=== PATIENT | male | born 1995 | race Caucasian/White ===

== ENCOUNTER 2018-11-15 04:22 | Emergency (ER) | payer OTHER, SELFPAY ==
[2018-11-15 04:27] VITALS: BP 121/80; PULSE 87; RESP 18; TEMP 37; O2SAT 98
--- NOTE | 2018-11-15 04:31 | ED.GENADUL_ITS ---
Discharge Plan Disposition Patient Disposition: HOME Condition: Good Discharge Details Chief Complaint: EyeProblem Clinical Impression: Foreign body of right eye Primary Care Provider: Brando Mcelroy ED Provider: Reggie Celestin Discharge Instructions Additional Instructions: Please avoid contact lenses for the next 24 hours and stick with just regular glasses. Please follow-up closely with your metallurgical lab technician. If you notice any worsening of your eye pain, change in vision, discharge, please return immediately for reassessment. As always it is a pleasure participating in your care today. Referrals: Brando Mcelroy. 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 He was removing it when he twitched and caused the lens to break. He comes in for removal of this. Exam demonstrates evidence of the half but intact lens, it was easily removed with forceps with out any difficulty or complication. Fluorescein stain demonstrated no uptake or abnormality. Eversion of the upper and lower lids demonstrates no retained foreign body. No clinical evidence of ulcer. No indication for antibiotics. Patient has complete relief of his symptoms with removal of the partial lids. Recommend avoiding lenses for the next 24 hours and sticking with a regular glasses. Recommend close follow-up with his metallurgical lab technician. I have extensively reviewed the treatment plan and discharge instructions with the patient and their family. I have addressed all patient concerns at this time. The patient and family was made aware of what symptoms to monitor for that would warrant a return to the emergency department. Discussed the plan with the patient and family, they demonstrate verbal understanding and agreement with our assessment and plan at this time. HPI General Date/Time Provider Initiated Documentation: 11/15/18 04:31 . 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 The patient was taking his flat flexible lenses out when his eye twitched and broke the rubber lens in a half. Since then he has been unable to remove it. He does admit to feeling of mild irritation but denies any pain or vision changes otherwise. Immunizations are up-to-date. He denies any discharge. This occurred roughly 15 to 20 minutes prior to arrival. Pain is made worse with movement of the side. No other modifying factors. No other complaints at this time Related Data Allergies Allergy/AdvReac Type Severity Reaction Status Date / Time cephalexin monohydrate Allergy Unknown Hives Unverified 11/15/18 04:30 [From Partender] General Stated Complaint: EyeProblem REED: 4 Review of Systems Review of Systems All systems reviewed & are unremarkable except as noted in HPI and below PFSH Medical History Pectus excavatum Surgical History Hydrocelectomy LYMPH NODE EXCISION/BX (~2009) RODRIGO PROCEDURE Removal of Pectus bar and stabilizers TENDON EXCISION Family History Mother No problems noted. Father Alcohol abuse Brother ADHD (attention deficit hyperactivity disorder) Grandfather Diabetes Essential hypertension Heart disease Hyperlipidemia Grandfather No problems noted. Grandmother Essential hypertension Personal history of malignant neoplasm Grandmother No problems noted. FAMILY HISTORY Personal history of malignant neoplasm Stroke Exam Narrative Exam Narrative: 1.Const: Well-nourished, Well-developed, appearing stated age 2.Eyes: Eye: EOMI, PERRL, Peripheral vision intact. No nystagmus. No external signs of preseptal cellulitis, no redness around the eye, no proptosis. No hyphema, no signs of trauma around the eye, no periorbital emphysema. Fluorescein exam is negative for corneal abrasion, negative Marbella sign. There is evidence of the remaining half of the contact lens still in place. This was removed without incident. Fluorescein staining after demonstrated no evidence of uptake or abnormality. No signs of ulcer. 3.ENT: Atraumatic external nose and ears. Moist MM. Neck: Symmetric, trachea midline, No thyromegaly. 4.CVS: +S1/S2, No murmurs or gallops. Peripheral pulses 2+ and equal in all extremities. Brisk capillary refill in all extremities. 5.RESP: Unlabored respiratory effort. Clear to auscultation bilaterally. No wheezes rales or rhonchi 6.GI: Soft, Nontender/Nondistended, No hepatosplenomegaly. No guarding or rebound. 7.MSK: Normocephalic/Atraumatic, Extremities w/o deformity or ttp No cyanosis or clubbing, Normal movement of all extremities 8.Skin: Warm, Dry. No rashes or lesions. 9.Neuro: chemical dependency professional II-XII grossly intact. Sensation grossly intact, no focal neurologic deficits. 10.Psych: (AAO) x3. Appropriate mood and affect Course Vital Signs Temperature 37 C 11/15/18 04:27 Pulse 87 11/15/18 04:27 Respiratory Rate 18 11/15/18 04:27 Blood Pressure 121/80 11/15/18 04:27 Pulse Oximetry 98 11/15/18 04:27 Temperature 37 C 11/15/18 04:27 Temperature Source Temporal Artery Scan 11/15/18 04:27 Pulse 87 11/15/18 04:27 Respiratory Rate 18 11/15/18 04:27 Blood Pressure 121/80 11/15/18 04:27 Blood Pressure Position Sitting 11/15/18 04:27 Pulse Oximetry 98 11/15/18 04:27 Oxygen Delivery Method Room Air 11/15/18 04:27 Oxygen Flow Rate 0 11/15/18 04:27 Pain Level 0 11/15/18 04:27
== END 2018-11-15 04:33 | disposition home or self-care (01) ==
LOC: ER 04:35
PROVIDERS: Emergency Provider Student in an Organized Health Care Education/Training Program; PCP Family Medicine
DX: T15.91XA Foreign body on external eye, part unspecified, right eye, initial encounter (principal)
CPT/HCPCS: 99283

== ENCOUNTER 2023-01-18 08:17 | Day surgery (SDC) | payer OTHER, SELFPAY ==
--- NOTE | 2023-01-17 14:25 | W.PM.DSUDISC ---
Date of service: 01/18/23 Time of Service: 10:57 Discharge Plan Disposition Patient Disposition: Home Condition: Good Discharge Details Reason For Visit: Pilonidal cystectomy Attending Provider: Dequan Rios Primary Care Provider: Oracio Morales Home Meds and New Rx's Prescriptions: New tramadol 50 mg tablet 50 mg PO Q8H PRNQty: 12 0RF Rx Instructions: Take 1 tablet by mouth up to every 8 hours if needed for severe pain. Discharge Instructions Instructions: Pilonidal Cyst Excision (DC) Additional Instructions: Edi, we were able to excise the cyst today without any difficulty. I was able to get out all of the capsule, and I am very optimistic that this will prevent any of it from coming back. Over the coming days, you should use Tylenol and ibuprofen to help with discomfort. Heating pads and ice packs can also be used. I also provided a prescription for some stronger pain medications that you can use if needed. Leave your bandages in place until tomorrow, then remove them. Shower with warm soapy water and pat the area dry. If you need a Band-Aid to protect your clothing that is fine. If you can shower twice a day that will probably be helpful. We have made an appointment with you in the office on January 30 to have the stitches removed. If you have any problems in the meantime, please do not hesitate to call. Referrals: Dequan Rios MD [ [facility]YSICIAN] - (January 30) Activity:: Activity as Tolerated Shower/Bathe:: 24 hours Diet:: As Tolerated Discharge Orders Discharge Orders: Discharge Order (Routine); Ordered 01/17/23 Ordered By: Dequan Rios DS: Diagnosis Discharge Diagnosis (1) Pilonidal cyst: Asessment and Plan: Follow-up in my office January 30
--- NOTE | 2023-01-17 14:26 | W.PM.OP ---
Date of service: 01/18/23 Time of Service: 11:02 Operative Note Operative Note DATE OF PROCEDURE: 01/18/23 PRE-OP DIAGNOSIS: Pilonidal cyst POST-OP DIAGNOSIS: same PROCEDURE: Excision and primary closure of pilonidal cyst SURGEON: Dequan Rios SENIOR MANAGER CREATIVE SERVICES: Neha Chavez ANESTHESIA TYPE: Local By Surgeon, MAC and Spinal Refer to Anesthesia Record ESTIMATED BLOOD LOSS: 5 PATHOLOGY: other (Pilonidal cyst) COMPLICATIONS: None Patient was transported to: PACU Patient's condition: stable Indications: Edi is 27 years old, and he had a pilonidal cyst with intermittent infection and drainage. He is interested in elective pilonidal cystectomy. Procedure Description: After final anesthesia was established, the patient was assisted to the prone position. Great care was taken to pad all the points of contact. Genitalia were assessed. Next, the sacrococcygeal area was prepped and draped. Established a generous field block using local anesthetic with epinephrine. The trajectory of the cyst was carefully examined. At the skin level, it arose approximately 3 cm to the left of midline, and tracked down into the superior aspect of the intergluteal fold. Because of the bridge of healthy skin, I felt the best option for excision was a semielliptical incision around the area of the superficial portion of the cyst. This was situated well off the midline. A 15 blade scalpel was used to carefully dissect the midline skin down to the underside of the cyst. Another small subcentimeter area of opening was identified in the midline. This was sharply excised. The soft tissue around the cyst itself was all excised with a 15 blade scalpel. The cyst was removed in its entirety. It was passed off the field and labeled appropriately. Surgical site was irrigated. Bovie electrocautery was used to control punctate areas of bleeding. The wound bed was carefully examined. Again, it appeared that there was no evidence of any retained cyst material. The midline defect was closed with a single interrupted absorbable suture. The remainder the incision was closed in layers subcuticular stitches deep, and horizontal mattress stitches at the skin level. Bandages were applied, the patient was transferred to the same-day surgery recovery unit.
[2023-01-18] MEDS: Gabapentin 300 MG CAP 600 MG PO (08:29)
[2023-01-18] MEDS: Acetaminophen 500 MG TAB 1000 MG PO (08:30)
[2023-01-18] MEDS: Celecoxib 200 MG CAP PO (08:30)
[2023-01-18 08:33] VITALS: BP 102/67; PULSE 51; RESP 16; TEMP 36.3; O2SAT 99
--- NOTE | 2023-01-18 08:51 | W.ANESPRE ---
General Info Date of Service Date Performed: 01/18/23 Height: 5 ft 11 in Weight: 66.6 kg Body Mass Index (BMI): 20.5 Surgical Procedure: Operation Date: 01/18/23 09:55 Proposed Procedure Side Surgeon p Pilonidal Cystectomy w/Closure Dequan Rios MD Meds Allergies and Home Medications Allergies Allergy/AdvReac Type Severity Reaction Status Date / Time cephalexin monohydrate Allergy Severe Swelling/Ed Unverified 01/18/23 08:39 [From Keflex] syed Home Medication Medication Instructions Recorded Unknown [No Known Home Meds] 11/03/22 Current Visit Medications: Current Medications Generic Name Dose Route Start Last Admin Trade Name Freq PRN Reason Stop Dose Admin Acetaminophen 1,000 mg 01/18/23 06:00 01/18/23 08:30 Acetaminophen 500 Mg Tab PO 01/18/23 23:59 1,000 mg PREOP TATIANA Administration Celecoxib 200 mg 01/18/23 06:00 01/18/23 08:30 Celecoxib 200 Mg Cap PO 01/18/23 23:59 200 mg PREOP TATIANA Administration Gabapentin 600 mg 01/18/23 06:00 01/18/23 08:29 Gabapentin 300 Mg Cap PO 01/18/23 23:59 600 mg PREOP TATIANA Administration Ringer's Solution 1,000 mls @ 80 mls/hr 01/18/23 06:00 IV 01/18/23 23:59 INFUSION TATIANA Vancomycin/PEG/NADA/Lysine/Water 1 gm in 200 mls @ 133.333 mls/hr 01/18/23 06:00 Vancocin Injection IVPB 01/18/23 16:00 PREOP TATIANA IV Miscellaneous Supplies 1 each 01/18/23 06:00 Iv Access IV 01/18/23 23:59 DIRECTED TATIANA Morphine Sulfate 2 mg 01/17/23 14:27 Morphine 4 Mg/Ml Syr IVP 02/16/23 14:26 Q1H PRN PRN Sodium Chloride 0 ml 01/18/23 06:00 Normal Saline Flush 10 Ml Syr IV 01/18/23 23:59 PRN PRN Sodium Chloride 0 ml 01/18/23 06:00 Normal Saline 10 Ml Vial IJ 01/18/23 23:59 DIRECTED PRN Sterile Water 0 ml 01/18/23 06:00 Water,Injection,Sterile 10 Ml Vial IJ 01/18/23 23:59 DIRECTED PRN Tramadol HCl 50 mg 01/17/23 14:27 Tramadol 50 Mg Tab PO 02/16/23 14:26 Q6H PRN PRN Pain PFSH Active Problems Active Problems: Problem Status Onset Code Preventative health care Z00.00 Medical History Medical History Acne (11/05/13) Pectus excavatum Pilonidal cyst (07/31/16) Surgical History Surgical History History of hydrocelectomy History of lymph node excision History of surgical procedure Hydrocelectomy AGE 4 LYMPH NODE EXCISION/BX (~2009) [facility] [place]; CAT SCRATCH DISEASE BX-NEG RODRIGO PROCEDURE 05/2013; PECTUS EXCAVATUM-[facility] [place] Removal of Pectus bar and stabilizers 06/24/15; [facility] [place] DR. ALEXIS; 2 BARS Born w/ Pectus Excavatum-remediated Status post tendon repair TENDON EXCISION 12/05/11 LEFT RING FINGER Tobacco Smoking/Tobacco Use Status: Never Second hand exposure: Yes Alcohol Alcohol Intake: current Alcohol intake frequency: a few times a month Alcohol type: beer Substance Use Substance use: Socially Substance use type: marijuana Vital Signs and Lab Results Vital Signs Most Recent Vital Signs in EMR: Most Recent Vital Signs Temp Pulse Resp BP Pulse Ox 36.3 C L 51 L 16 102/67 99 01/18/23 08:33 01/18/23 08:33 01/18/23 08:33 01/18/23 08:33 01/18/23 08:33 Lab Results Blood Type / Crossmatch: No Data to Display Complete Blood Count: No Data to Display Complete Metabolic Panel: No Data to Display Liver Function Panel: No Data to Display Coagulation Panel: No Data to Display Cardiac Panel: No Data to Display Arterial Blood Gas: No Data to Display Venous Blood Gas: No Data to Display Pancreas Panel: No Data to Display Thyroid Panel: No Data to Display Infectious Disease: No Data to Display Blood Cultures: No Data to Display Toxicology Panel: No Data to Display Imaging and Studies Imaging and Studies Study information below may be from another EMR and interpreted by another provider. Please see original notes in EMR for more complete details. Echocardiogram Summary: DATE OF SERVICE: 03/23/13 : 1995 March 23, 2013 OUTPATIENT ORDERING PHYSICIAN: Ramos Alexis MD HEIGHT: 5 FT 11 IN WEIGHT: 150 LBS BSA: 1.9 m2 STUDY INDICATIONS: Pectus. FINDINGS: LEFT VENTRICLE: LVEF 50% to 55%. Normal size. RIGHT VENTRICLE: Not well visualized. AORTIC VALVE: Trileaflet. No aortic stenosis or insufficiency. MITRAL VALVE: No mitral stenosis or insufficiency. TRICUSPID VALVE: [id number] tricuspid insufficiency. RSV/PA PRESSURE: Pulmonary artery pressure estimated at 15-20 mmHg plus right atrial pressure. PULMONIC VALVE: No pulmonic stenosis or insufficiency. LEFT/RIGHT ATRIA: Within normal limits. DIASTOLIC INDICES: GREAT VESSELS: IVC is normal in size, and collapses with inspiration. Right atrial pressure is estimated at less than 10 mmHg. The aortic root and ascending aorta appear within normal limits. PERICARDIUM: No effusion. RHYTHM: Sinus. SUMMARY: Left ventricular systolic function lower limits of normal. Right ventricle is not well visualized. 1+ to 2+ tricuspid regurgitation. Pulmonary artery pressure is within normal limits. Atrial size within normal limits. No prior studies. Pulmonary Function Summary: DATE OF SERVICE: 02/13/13 [facility] Pulmonary Function Test Patient: Edi Paredes Date: 02/13/2013 Provider: Reggie Shea Tech: MR# [id number] Age: 17 : 1995 Height: 71.00 in Weight: 139.00 lbs Sex Male Diagnosis: Pectis excavatum. Pulmonary Medications: None. Post Test Comments: EFFORT: Good patient effort and cooperation. No hemaglobin on record. BRONCHODILATOR: Albuterol inhaler 2 puffs, via spacer (pulse 60 up to 80). Pre Bronchodilator Post Bronchodilator Act Pred LLN %Pred Act %Pred %Change SPIROMETRY FVC (L) 3.5 5.02 4.19 71 3.64 73 2 FEV1 (L) 2.7 4.23 3.53 65 2.87 68 4 FEV1/FVC (%) 7 85 71 91 79 93 2 FEF 25-75% (L/sec) 2.4 4.37 3.65 55 2.56 59 6 Peak Flow (L/sec) 4.8 8.62 7.20 56 5.40 63 12 FIVC (L) 3.50 3.55 1 FIF Max (L/sec) 4.85 4.51 -7 LUNG VOLUMES SVC (L) 3.3 5.60 4.68 60 IC (L) 2.5 4.10 3.42 63 ERV (L) 0.8 1.50 1.25 53 TGV (L) 2.8 2.96 2.37 95 2.71 91 -4 RV (Pleth) (L) 2.0 1.46 1.17 139 TLC (Pleth) (L) 5.4 7.06 5.65 76 RV/TLC (Pleth) (%) 3 23 18 163 DIFFUSION DLCOunc (ml/min/mmHg) 32.2 23.62 18.90 137 DL/VA (ml/min/mmHg/L) 6.9 3.35 2.68 208 VA (L) 4.6 7.06 5.90 66 AIRWAYS RESISTANCE Raw (cmH2O/L/s) 2.2 1.75 1.46 130 1.23 70 -46 Gaw (L/s/cmH2O) 0.4 0.57 0.48 78 0.82 144 86 sRaw (cmH2O*s) 7.0 4.76 3.97 149 3.64 76 -49 sGaw (1/cmH2O*s) 0.1 0.19 0.16 75 0.28 146 94 PRIMARY CARE PROVIDER: Reggie Shea M.D. RESULTS: Spirometry shows no evidence of obstructive airways disease. No significant bronchodilator response. However, the findings might present borderline mild obstruction. Lung volumes show moderate restriction. Diffusion capacity above normal. Airways resistance elevated. IMPRESSION: Moderately severe restrictive disease which may be related to chest wall restriction from pectus excavatum. Elevated diffusion capacity can be seen in early asthma. The patient also has concomitant elevation in airways resistance. Therefore, if symptoms are suggestive of underlying asthma as well, proceeding with Methacholine challenge testing may prove to be useful. Anesthesia Assessment and Plan Anesthesia History Personal History: No History of Anesthesia Complications Family History: No Family History of Anesthesia Complications Exercise Tolerance Exercise Tolerance: Metabolic Equivalents>4 Pertinent Negatives Pertinent Negatives: No Symptoms of GERD Cardiac & Pulmonary Exam Cardiac Exam: Normal S1/S2 Heart Sounds Pulmonary Exam: Clear Bilateral Breath Sounds Implantable Cardiac Device Does patient have a Pacemaker or an ICD?: No Airway Exam Known Difficult Airway: No Mallampati Class: 1 Mouth Opening: Normal (> 3cm) Thyromental Distance: Greater than 3 cm Neck Range of Motion: Full ROM Neck Circumference: Normal Teeth Condition: Normal Dentition ASA Classification ASA Score: ASA 2 Emergency Case?: No NPO Status NPO Status: NPO Clears >2 hours, Solids >8 hours Anesthesia Plan Resuscitation Status: Full Code Anesthesia Technique: Spinal Anesthesia Airway Planned: Natural Airway Monitors Used: Standard Monitors
[2023-01-18 08:59] VITALS: BMI 20.5
[2023-01-18] MEDS: Lactated Ringers 1,000 ML 80 ML IV (09:06)
[2023-01-18] MEDS: VANCOMYCIN/WATER (PEG) 1 GM/200 ML BAG IVPB (09:58)
--- NOTE | 2023-01-18 10:44 | PILONIDAL_PTH ---
PATIENT: Edi Paredes LOC: [facility] U#:[id number] AGE/SX: 27/M ROOM: RE01/18/[address]: Dequan Rios MD : 1995 BED: DIS: 01/18/2023 SPEC #: [id number] RECD: 01/18/23 12:42 STATUS: JHONATAN REQ #: [id number] JORGE: 01/18/23 10:[address]: Dequan Rios DEPT: Surgical Specimen RECD BY: Nita Brown ENTERED: 01/18/23 12:44 SP TYPE: PILONIDAL OTHR DR: Oracio Kearney DNP Tissues: 1 - PILONIDAL CYST/SINUS Procedures: GROSS AND MICRO LEVEL 3 Comments: [id number]
[2023-01-18 10:58] VITALS: BP 104/57; PULSE 50; RESP 18; TEMP 36.8; O2SAT 98
[2023-01-18 11:20] VITALS: BP 97/50; PULSE 50; RESP 18; TEMP 36.7; O2SAT 98
--- NOTE | 2023-01-18 11:43 | W.ANESPOSTOP ---
Postoperative Evaluation Date, Time and Location Date Performed: 01/18/23 Time Performed: 11:43 Patient Location: Day Surgery Unit Vital Signs Most Recent Imported Vital Signs: Most Recent Vital Signs Temp Pulse Resp BP Pulse Ox 36.7 C 50 L 18 97/50 L 98 01/18/23 11:20 01/18/23 11:20 01/18/23 11:20 01/18/23 11:20 01/18/23 11:20 Pain Score Most Recent Pain Score: Most Recent Pain Score Pain Level 0 01/18/23 11:20 Assessment Mental Status: Awake (Alert & Oriented to Patient Baseline) Airway and Respiratory Function: Patent airway with normal (patient baseline) respiratory exam Cardiovascular Function: Hemodynamically Stable Hydration Status: Adequately Hydrated Nausea & Vomiting: No Nausea or Vomiting Pain: Pt. Denies Any Pain Peripheral Nerve Block: Patient did not receive a nerve block
[2023-01-18 12:30] VITALS: BP 100/62; PULSE 60; RESP 18; TEMP 36.7; O2SAT 98
[2023-01-18 14:45] VITALS: BP 125/86; PULSE 76; RESP 18; TEMP 36.6; O2SAT 98
== END 2023-01-18 08:18 | disposition home or self-care (01) ==
PROVIDERS: PCP Nurse Practitioner Family; Visit Provider Surgery
PROC: (CPT 11770; principal; 2023-01-18 09:45)
DX: L05.91 Pilonidal cyst without abscess (principal)
CPT/HCPCS: 11770; 88304; J2250; J2405

== ENCOUNTER 2023-03-22 09:20 | Inpatient (IN) | payer OTHER, SELFPAY ==
[2023-03-22] VITALS (14 sets, daily range): BP systolic 105–127; BP diastolic 58–86; PULSE 70–102; RESP 13–21; TEMP 36.1–38; O2SAT 93–100
--- NOTE | 2023-03-22 10:21 | ED.GENADUL_ITS ---
Discharge Plan Disposition Patient Disposition: Admit to [facility] Condition: Serious Discharge Details Chief Complaint: Cellulitis Clinical Impression: Sepsis, Perirectal abscess Primary Care Provider: Oracio Morales ED Provider: Ben Simmons Home Meds and New Rx's Prescriptions: No Action No Known Home Meds Medical Decision Making 1040?- 27-year-old male here 2 months status post elective pilonidal cyst removal that was uncomplicated, now with inflammation left gluteal cleft that extends to rectum. Concern for perirectal abscess. Consider deeper space infection. Plan to obtain CT of the abdomen pelvis. Patient is febrile and tachycardic. Patient meets sepsis criteria. I will give initial antibiotic coverage with vancomycin IV. I will give IV fluid bolus. Of note patient has anaphylactic reaction to cephalosporins. Lactate and blood culture sent. I will consult general surgery. --Labs reviewed and leukocytosis noted. Lactate normal. CT of the abdomen pelvis was interpreted by radiology:1. Perirectal inflammation with what appears to be a very small (less than 2 cm) fluid collection in the left perirectal soft tissues suggestive of a small abscess. 2. Findings were discussed with Dr. Simmons at 11:11 a.m. on 03/22/2023. I spoke with Dr. Rios, discussed ED presentation course, he will admit the patient request bridging orders be placed to the floor. [id number] --patient reassessed and heart rate improved after IV fluid bolus. Remains normotensive. Lab Data Lab results reviewed: Yes I reviewed the patient's lab results. Labs: 03/22/23 10:27 Blood Blood Culture - Pending 03/22/23 10:25 Blood Blood Culture - Pending Laboratory Tests Range/Units 03/22/23 10:25 WBC (4.4-10.8) 10^3/uL 15.23 H RBC (4.36-5.78) 10^6/uL 4.74 Hgb (13.5-17.5) g/dL 13.8 Hct (40.0-50.0) % 41.0 MCV (80-95) fL 87 MCH (27.0-33.0) pg 29.1 MCHC (32.0-36.0) % 33.7 RDW (11.8-14.1) % 11.7 L Plt Count (130-400) 10^3/uL 232 MPV (8.0-11.0) fL 9.0 Immature Gran % 0.3 Neutrophils % 85.8 Lymphocytes % 7.1 Monocytes % 5.4 Eosinophils % 0.9 Basophils % 0.5 Nucleated RBC % (0.0-0.3) % 0.0 Absolute Neutrophils (1.2-6.7) 10^3/uL 13.07 H Absolute Lymphocytes (1.2-3.4) 10^3/uL 1.08 L Absolute Monocytes (0.1-0.8) 10^3/uL 0.82 H Absolute Eosinophils (0.0-0.7) 10^3/uL 0.14 Absolute Basophils (0.0-0.2) 10^3/uL 0.08 VBG Lactate (0.6-1.4) mmol/L 1.2 Sodium (136-145) mmol/L 137 Potassium (3.5-5.1) mmol/L 3.8 Chloride (98-107) mmol/L 102 Carbon Dioxide (21.0-32.0) mmol/L 27.3 Anion Gap (3-11) mmol/L 7.7 BUN (7-18) mg/dL 6 L Creatinine (0.70-1.30) mg/dL 0.8 Est GFR (CKD-EPI 2020) (mL/min/1.73m2) 125.95 Glucose (74-106) mg/dL 109 H Calcium (8.5-10.1) mg/dL 9.0 Total Bilirubin (0.2-1.0) mg/dL 0.6 AST (15-37) U/L 14 L ALT (16-63) U/L 21 Alkaline Phosphatase (46-116) U/L 85 Total Protein (6.4-8.2) g/dL 7.9 Albumin (3.4-5.0) g/dL 4.4 HPI General Mode of arrival: ambulatory . Date/Time Provider Initiated Documentation: 03/22/23 09:57 . Limitations to Documentation: no limitations . Information obtained by: patient . HPI Narrative: 27-year-old male here with chief complaint of skin infection. Patient notes over the past few days has had worsening swelling and pain left buttock and perirectal. Pain is now severe. He has associated subjective fever. Of note, patient had an uncomplicated elective pilonidal cyst removal 01/18/2023. Related Data Home Medications Medication Instructions Recorded Confirmed Unknown [No Known Home Meds] 02/13/23 03/22/23 Allergies Allergy/AdvReac Type Severity Reaction Status Date / Time cephalexin monohydrate Allergy Severe Swelling/Ed Unverified 03/22/23 09:31 [From Keflex] syed General Stated Complaint: Cellulitis REED: 3 Review of Systems All systems reviewed & are unremarkable except as noted in HPI and below Constitutional Constitutional: Reports fever(s) PFSH All Active Problems (Updated 03/22/23 @ 12:11 by Ben Simmons MD) Perirectal abscess (Acute) Sepsis (Acute) Preventative health care (Acute) Medical History Pilonidal cyst (07/31/16) Acne (11/05/13) Pectus excavatum Surgical History Pilonidal cyst with abscess (~12/2022) Status post tendon repair History of surgical procedure History of lymph node excision History of hydrocelectomy TENDON EXCISION 12/05/11 LEFT RING FINGER Removal of Pectus bar and stabilizers 06/24/15; [facility] 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/2013; PECTUS EXCAVATUM-[facility] [place] LYMPH NODE EXCISION/BX (~2009) [facility] [place] CAT SCRATCH DISEASE BX-NEG Hydrocelectomy AGE 4 Family History Mother Depression Father Alcohol abuse Hyperlipidemia Depression Hypertension Obesity Brother ADHD (attention deficit hyperactivity disorder) Depression Grandfather Diabetes Essential hypertension Heart disease Hyperlipidemia Depression Memory loss Grandmother Essential hypertension Breast cancer Depression Obesity Grandmother Alcohol abuse Heart disease FAMILY HISTORY Personal history of malignant neoplasm PATERNAL GREAT GRANDFATHER-PROSTATE CANCER MATERNAL GREAT GRANDFATHER-LUNG CANCER Stroke MATERNAL GREAT GRANDMOTHER-MULTIPLE CVA/TIA Social History Smoking/Tobacco Use Status: Current-Occasional Tobacco Type: e-cigarettes Second Hand Exposure: Yes Smoking risk assessment performed?: Yes Alcohol Intake: current Alcohol Intake frequency: a few times a month Alcohol type: beer Drug use: Socially Substance use type: marijuana Caregiver/Support person: No Household members: significant other Housing: house Communication Needs: Corrective Lenses Do you need help understanding health information?: Often Pets and animals: Yes Pets and animals: dog(s) Sexually active: Yes Do you think of yourself as: straight/heterosexual Current gender identity: male What is your relationship status?: living with partner How often do you talk on the phone with friends or family?: three or more times per week How often do you get together with friends or relatives?: twice per week How often do you attend episcopal or christianity services?: decline to answer Do you belong to any clubs or organized social groups?: no Panel score (0-1 are the most socially isolated patients): 2 What type of physical activity do you participate in: none Frequency: does not exercise Mary/Scientology: No preference Special mary needs: No Seatbelt use: never Helmet use: Yes Helmet use: sometimes Drive 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 Do you feel safe at home: Yes Do you feel safe in your relationship?: Yes Exam Const General: cooperative and uncomfortable HENMT Mouth: moist mucous membranes Eyes Conjunctivae: normal conjunctivae Sclera: normal sclerae Resp Auscultation: clear to auscultation bilaterally, no rales, no rhonchi and no wheezes Cardio Rate: regular rate and not tachycardic Rhythm: regular rhythm GI Palpation: soft, not firm, no guarding, no masses, not rigid and nontender Rectal Exam: tenderness Skin Rashes: rashes noted (Erythema and swelling left gluteal cleft, ttp) Neuro General: patient alert, patient awake and tone normal Course Vital Signs Vital signs: Vital Signs Temperature 38.0 C H 03/22/23 09:27 Pulse 102 H 03/22/23 09:27 Respiratory Rate 16 03/22/23 09:27 Blood Pressure 114/70 03/22/23 09:27 Pulse Oximetry 98 03/22/23 09:27 Temperature 38.0 C H 03/22/23 09:34 Temperature Source Skin 03/22/23 09:34 Pulse 102 H 03/22/23 09:34 Respiratory Rate 16 03/22/23 09:34 Respiratory Effort Normal 03/22/23 09:32 Blood Pressure 114/70 03/22/23 09:34 Blood Pressure Position Standing 03/22/23 09:27 Pulse Oximetry 98 03/22/23 09:34 Oxygen Delivery Method Room Air 03/22/23 09:27 Oxygen Flow Rate 0 03/22/23 09:27 Pain Level 10 03/22/23 09:34 Lab/Test Results Lab/Test Results: 03/22/23 10:05 Blood Blood Culture - Pending 03/22/23 10:05 Blood Blood Culture - Pending
[2023-03-22] MEDS: Lactated Ringers 1,000 ML 1000 ML IV (10:43)
[2023-03-22 10:44] LABS: Lactate 1.2 mmol/L (0.6-1.4)
[2023-03-22] MEDS: Normal Saline - Diluent 50 ML VIAL IJ (10:44)
[2023-03-22] MEDS: VANCOMYCIN 1,500 MG in Normal Saline 250 ML 166.6666 MG IVPB (10:44)
[2023-03-22 10:45] LABS: Abs Immature Grans 0.05 10^3/uL (0.0-0.06); Absolute Eosinophil Count 0.14 10^3/uL (0.0-0.7); Absolute Lymphocyte Count 1.08 10^3/uL (1.2-3.4); Absolute Monocyte Count 0.82 10^3/uL (0.1-0.8); Absolute Neutrophil Count 13.07 10^3/uL (1.2-6.7); Basophils % 0.5; Eosinophils % 0.9; HGB 13.8 g/dL (13.5-17.5); Immature Grans % 0.3; Lymphocytes % 7.1; MCH 29.1 pg (27.0-33.0); MCHC 33.7 % (32.0-36.0); MCV 87 fL (80-95); Monocytes % 5.4; Neutrophils % 85.8; Platelet Count 232 10^3/uL (130-400); RBC 4.74 10^6/uL (4.36-5.78); RDW 11.7 % (11.8-14.1); RDW-SD 37.2 fL; WBC 15.23 10^3/uL (4.4-10.8)
[2023-03-22] MEDS: HYDROmorphone 2 MG/ML SYR 1 MG IVP (10:45)
[2023-03-22] MEDS: Omnipaque 350 MG/ML 500 ML BTL-Imaging package 100 ML IJ (10:45)
[2023-03-22 10:48] LABS: Absolute Basophil Count 0.08 10^3/uL (0.0-0.2)
--- NOTE | 2023-03-22 10:55 | DI.CT_ITS ---
Exam(s) CT ABDOMEN PELVIS W EXAM: CT ABDOMEN PELVIS W CLINICAL HISTORY: perirectal abscess, assess for deep space infectio TECHNIQUE: Imaging Protocol: Axial computed tomography images with coronal and sagittal reformatted images were created and reviewed CONTRAST MATERIAL: Intravenous: Omnipaque 350 Contrast volume:100 mL Oral: No COMPARISON: CT CHEST WITHOUT CONTRAST from 02/17/2013 FINDINGS: ABDOMEN: Lung Bases: Normal where visualized. Liver: Normal density. No measurable mass. Portal, Superior Mesenteric, and Splenic Veins: Unremarkable. Gallbladder and Biliary Tract: No radiodense calculus or dilation. Pancreas: Normal density, no abnormal calcifications or inflammatory process. Spleen: Normal. Adrenals: No masses seen. Kidneys: Normal size, contour and axis. No radiodense stones or obstructive uropathy. No masses seen. Abdominal Aorta: Abdominal portion non-dilated. Bowel: No obstruction or bowel wall thickening. Incidental note is made of an entero entero intussusc eption in the left upper quadrant. There is no evidence of obstruction. There is a moderate amount of stool in the colon suggesting constipation. No evidence of appendicitis. Peritoneal Cavity: No ascites, collection or mesenteric inflammatory response. No free air. Lymph Nodes: Within normal limits. Bones: Within normal limits for the patient's age. Soft Tissues: There is inflammation seen in the perirectal soft tissues on the left. There does appea r to be a small less than 2 cm fluid collection in the left perirectal soft tissues. PELVIS: Bladder: Symmetric distention, no gross wall thickening. Reproductive Organs: Unremarkable as visualized. Lymph Nodes: Within normal limits. Bones: Within normal limits for the patient's age. IMPRESSION: 1. Perirectal inflammation with what appears to be a very small (less than 2 cm) fluid collection in the left perirectal soft tissues suggestive of a small abscess. 2. Findings were discussed with Dr. Simmons at 11:11 a.m. on 03/22/2023. RADIATION DOSE DELIVERED: Total DLP DATA REPOSITORY: All CT scans at this facility are submitted to the National Radiology Data Registry (NRDR) Dose Index Registry (DIR) with the [employer] (ACR). RADIATION OPTIMIZATION: All CT scans at this facility use at least one of these dose optimization te chniques: automated exposure control; mA and/or kV adjustment per patient size (includes targeted exa ms where dose is matched to clinical indication); or iterative reconstruction.
[2023-03-22 11:01] LABS: ALT 21 U/L (16-63); AST 14 U/L (15-37); Albumin 4.4 g/dL (3.4-5.0); Alkaline Phosphatase 85 U/L (46-116); Anion Gap 7.7 mmol/L (3-11); BUN 6 mg/dL (7-18); Bilirubin, Total 0.6 mg/dL (0.2-1.0); CO2 27.3 mmol/L (21.0-32.0); CREATININE 0.8 mg/dL (0.70-1.30); Chloride 102 mmol/L (98-107); Estimated GFR 125.95 (mL/min/1.73m2); Glucose 109 mg/dL (74-106); Potassium 3.8 mmol/L (3.5-5.1); Sodium 137 mmol/L (136-145); Total Protein 7.9 g/dL (6.4-8.2)
[2023-03-22] MEDS: ACETAMINOPHEN 1,000 MG/100 ML BTL 400 MG IVPB (11:08)
--- NOTE | 2023-03-22 12:36 | HPE_ITS ---
Date of service: 03/22/23 Time of Service: 12:36 Assessment and Plan Assessment and plan (1) Perirectal abscess: Status: Acute Assessment and plan: This seems to be separate from his previous pilonidal cystectomy, and seems most consistent with some evolving cellulitis, and perhaps the beginning of a buttock abscess. I do not appreciate a discrete area to drain on the physical exam. For now, we will start some broad-spectrum antibiotics, and provide some basic resuscitation and pain control. Will reassess the wound over the next 24 hours. Hopefully, the antibiotics will help improve the cellulitis and resolve the inflammation. If it coalesces into a discrete abscess, that he will need incision and drainage of that abscess. History of Present Illness History of Present Illness Chief Complaint: Buttock pain Narrative: Edi is 27 years old. He comes to the emergency department with increasing pain in his left buttock, within the intergluteal cleft. He says it started about 4 to 5 days ago. Initially, he thought it was a pimple, or perhaps an ingrown hair. He tried to drain it, but was not able to express any fluid. The pain has become more intense. He did not notice any subjective fevers, but he is starting to feel little ill. In the emergency department, he was found have a white blood cell count of 15,000, and a fever to 100.4. He underwent a CAT scan of the abdomen and pelvis that demonstrated inflammation in the left buttock, slightly cephalad to the perianal region. There is possibility of a small abscess here. His other medical history that is most significant includes a pilonidal cyst, for which she underwent pilonidal cystectomy and primary closure about a month and a half ago. Review of Systems Constitutional Constitutional: Denies fever(s) and Reports lethargy Eyes Eyes: Reports system reviewed and no additional complaints, except as documented ENT Ears, Nose, Mouth, and Throat: Reports system reviewed and no additional complaints, except as documented Cardiovascular Cardiovascular: Denies chest pain, Denies syncope and Denies dyspnea Respiratory Respiratory: Denies chest congestion, Denies cough and Denies dyspnea Gastrointestinal Gastrointestinal: Denies abdominal pain and Denies constipation Genitourinary Genitourinary: Reports system reviewed and no additional complaints, except as documented Musculoskeletal Musculoskeletal: Reports abnormal gait (Secondary to pain in the buttock) Neurologic Neurologic: Reports system reviewed and no additional complaints, except as documented, Reports abnormal gait (Secondary to pain in the buttock) and Denies syncope Psychiatric Psychiatric: Reports system reviewed and no additional complaints, except as documented Hematologic/Lymphatic Hematologic/Lymphatic: Denies easy bleeding and Denies easy bruising PFSH All Active Problems Perirectal abscess (Acute) Sepsis (Acute) Preventative health care (Acute) Medical History Pilonidal cyst (07/31/16) Acne (11/05/13) Pectus excavatum Surgical History Pilonidal cyst with abscess (~12/2022) Status post tendon repair History of surgical procedure History of lymph node excision History of hydrocelectomy TENDON EXCISION 12/05/11 LEFT RING FINGER Removal of Pectus bar and stabilizers 06/24/15; [facility] [place] 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/2013; PECTUS EXCAVATUM-[facility] [place]YMPH [place] EXCISION/BX (~2009) [facility] [place] CAT SCRATCH DISEASE BX-NEG Hydrocelectomy AGE 4 Family History Mother Depression Father Alcohol abuse Hyperlipidemia Depression Hypertension Obesity Brother ADHD (attention deficit hyperactivity disorder) Depression Grandfather Diabetes Essential hypertension Heart disease Hyperlipidemia Depression Memory loss Grandmother Essential hypertension Breast cancer Depression Obesity Grandmother Alcohol abuse Heart disease FAMILY HISTORY Personal history of malignant neoplasm PATERNAL GREAT GRANDFATHER-PROSTATE CANCER MATERNAL GREAT GRANDFATHER-LUNG CANCER Stroke MATERNAL GREAT GRANDMOTHER-MULTIPLE CVA/TIA Social History Smoking/Tobacco Use Status: Current-Occasional Tobacco Type: e-cigarettes Second Hand Exposure: Yes Smoking risk assessment performed?: Yes Alcohol Intake: current Alcohol Intake frequency: a few times a month Alcohol type: beer Drug use: Socially Substance use type: marijuana Caregiver/Support person: No Household members: significant other Housing: house Communication Needs: Corrective Lenses Do you need help understanding health information?: Often Pets and animals: Yes Pets and animals: dog(s) Sexually active: Yes Do you think of yourself as: straight/heterosexual Current gender identity: male What is your relationship status?: living with partner How often do you talk on the phone with friends or family?: three or more times per week How often do you get together with friends or relatives?: twice per week How often do you attend anabaptism or baptist services?: decline to answer Do you belong to any clubs or organized social groups?: no Panel score (0-1 are the most socially isolated patients): 2 What type of physical activity do you participate in: none Frequency: does not exercise Mary/Mu-Ism: No preference Special mary needs: No Seatbelt use: never Helmet use: Yes Helmet use: sometimes 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 Do you feel safe at home: Yes Do you feel safe in your relationship?: Yes Meds Allergies and Home Medications Allergies Allergy/AdvReac Type Severity Reaction Status Date / Time cephalexin monohydrate Allergy Severe Swelling/Ed Unverified 03/22/23 09:31 [From Keflex] syed Home Medications Medication Instructions Recorded Confirmed Type Unknown [No Known Home Meds] 02/13/23 03/22/23 History Exam Chest Chest: normal inspection of the chest Resp Effort & Inspection: normal respiratory effort Auscultation: clear to auscultation bilaterally Cardio Rate: regular rate Rhythm: regular rhythm GI Other: There is an area of induration along the intergluteal cleft, along the left buttock. There is minimal erythema. There is no fluctuance. There is no drainage. External anorectal exam is normal. Results Labs 03/22/23 10:25 03/22/23 10:25 Labs: Laboratory Results - last 24 hr 03/22/23 10:25 WBC 15.23 H RBC 4.74 Hgb 13.8 Hct 41.0 MCV 87 MCH 29.1 MCHC 33.7 RDW 11.7 L Plt Count 232 MPV 9.0 Immature Gran % 0.3 Neutrophils % 85.8 Lymphocytes % 7.1 Monocytes % 5.4 Eosinophils % 0.9 Basophils % 0.5 Nucleated RBC % 0.0 Absolute Neutrophils 13.07 H Absolute Lymphocytes 1.08 L Absolute Monocytes 0.82 H Absolute Eosinophils 0.14 Absolute Basophils 0.08 VBG Lactate 1.2 Sodium 137 Potassium 3.8 Chloride 102 Carbon Dioxide 27.3 Anion Gap 7.7 BUN 6 L Creatinine 0.8 Est GFR (CKD-EPI 2020) 125.95 Glucose 109 H Calcium 9.0 Total Bilirubin 0.6 AST 14 L ALT 21 Alkaline Phosphatase 85 Total Protein 7.9 Albumin 4.4 Last Vital Signs Temp 100.4 F H 03/22/23 09:34 Pulse 102 H 03/22/23 09:34 Resp 16 03/22/23 09:34 BP 114/70 03/22/23 09:34 Pulse Ox 98 03/22/23 09:34 Time Spent Time spent with Patient: 40-54 minutes Time was spent: preparing to see the patient(eg.review tests), obtaining and/or reviewing separately otained hiistory, ordering medications,tests, procedures, indepentently interpreting results and counseling the patient
[2023-03-22] MEDS: LORazepam 2 MG/ML VIAL 0.5 MG IVP ×2 (13:37→21:55)
[2023-03-22] MEDS: HYDROmorphone 2 MG/ML SYR 0.5 MG IVP ×2 (13:38→20:03)
[2023-03-22] MEDS: Normal Saline Flush 10 ML SYR IVP (13:38)
[2023-03-22] MEDS: Acetaminophen 500 MG TAB 1000 MG PO ×2 (13:39→21:55)
[2023-03-22] MEDS: Enoxaparin 40 MG/0.4 ML SYR SC (13:40)
[2023-03-22] MEDS: CEFEPIME 2 GM in Normal Saline 100 ML IVPB ×2 (14:50→22:10)
[2023-03-22] MEDS: Lactated Ringers 1,000 ML 30 ML IV (14:50)
--- NOTE | 2023-03-22 18:34 | W.PC.ACHO ---
Registration Status: ADM IN Primary Language: Preferred Language: Maori ED Information & Data Chief Complaint Cellulitis 03/22/23 10:42 Triage Note pt noticed bump left glute a 03/22/23 09:27 few days ago used warm compress last night states pain is excrutiating hx cyst near same area that has been removed temp of 99.6f - not otc relief today Medical / Surgical History (Last Reviewed 03/22/23 @ 12:36 by Dequan Rios MD) Pilonidal cyst (07/31/16) Acne (11/05/13) Pectus excavatum (Last Reviewed 03/22/23 @ 12:36 by Dequan Rios MD) Pilonidal cyst with abscess (~12/2022) Status post tendon repair History of surgical procedure History of lymph node excision History of hydrocelectomy TENDON EXCISION Removal of Pectus bar and stabilizers RODRIGO PROCEDURE LYMPH NODE EXCISION/BX (~2009) Hydrocelectomy Most Recent Vital Signs Temperature 36.6 C 03/22/23 15:31 Temperature Source Tympanic 03/22/23 15:31 Pulse 87 03/22/23 15:31 Pulse Rhythm Regular 03/22/23 13:06 Pulse 77 03/22/23 12:46 Respiratory Rate 18 03/22/23 15:31 Respiratory Effort Normal, Non-Labored 03/22/23 13:06 Respiratory Depth Normal 03/22/23 13:06 Respiratory Pattern Normal 03/22/23 13:06 Blood Pressure 124/86 03/22/23 15:31 Blood Pressure Mean 83 03/22/23 12:46 Blood Pressure Position Standing 03/22/23 09:27 Pulse Oximetry 99 03/22/23 15:31 Oxygen Delivery Method Room Air 03/22/23 15:31 Oxygen Flow Rate 0 03/22/23 15:31 Pain Level 8 03/22/23 15:31 Allergies cephalexin monohydrate [From Keflex] Allergy (Severe, Unverified 03/22/23 09:31) Swelling/Edema Per mom whole face swells up severely and Hives Precautions Isolation Standard precaution 03/22/23 09:32 Active Medications Generic Name Dose Route Start Last Admin Trade Name Freq PRN Reason Stop Dose Admin Acetaminophen 1,000 mg 03/22/23 14:00 03/22/23 13:39 Acetaminophen 500 Mg Tab PO 1,000 mg Q8H TATIANA Administration Enoxaparin Sodium 40 mg 03/22/23 14:00 03/22/23 13:40 Enoxaparin 40 Mg/0.4 Ml Syr SC 40 mg Q24H TATIANA Administration Hydromorphone HCl 0.5 mg 03/22/23 13:04 03/22/23 13:38 Hydromorphone 2 Mg/Ml Syr IVP 0.5 mg Q6H PRN PRN Administration Ringer's Solution 1,000 mls @ 30 mls/hr 03/22/23 13:04 03/22/23 14:50 IV 30 mls/hr INFUSION TATIANA Administration Cefepime HCl 2 gm/ Sodium 100 mls @ 200 mls/hr 03/22/23 14:00 03/22/23 14:50 Chloride IVPB 200 mls/hr Q8H TATIANA Administration Lorazepam 0.5 mg 03/22/23 13:04 03/22/23 13:37 Lorazepam 2 Mg/Ml Vial IVP 0.5 mg Q6H PRN PRN Administration IV IV Catheter Type [Right Peripheral IV Antecubital] IV Catheter Gauge [Right 18 Antecubital] Diet Orders Category Date Time Status Regular/Normal [DIET] Nutrition 03/22/23 Dinner Active Diagnostics 03/22/23 Range/Units 10:25 WBC 15.23 H (4.4-10.8) 10^3/uL RBC 4.74 (4.36-5.78) 10^6/uL Hgb 13.8 (13.5-17.5) g/dL Hct 41.0 (40.0-50.0) % MCV 87 (80-95) fL MCH 29.1 (27.0-33.0) pg MCHC 33.7 (32.0-36.0) % RDW 11.7 L (11.8-14.1) % Plt Count 232 (130-400) 10^3/uL MPV 9.0 (8.0-11.0) fL Immature Gran % 0.3 Neutrophils % 85.8 Lymphocytes % 7.1 Monocytes % 5.4 Eosinophils % 0.9 Basophils % 0.5 Nucleated RBC % 0.0 (0.0-0.3) % Absolute Neutrophils 13.07 H (1.2-6.7) 10^3/uL Absolute Lymphocytes 1.08 L (1.2-3.4) 10^3/uL Absolute Monocytes 0.82 H (0.1-0.8) 10^3/uL Absolute Eosinophils 0.14 (0.0-0.7) 10^3/uL Absolute Basophils 0.08 (0.0-0.2) 10^3/uL VBG Lactate 1.2 (0.6-1.4) mmol/L Sodium 137 (136-145) mmol/L Potassium 3.8 (3.5-5.1) mmol/L Chloride 102 (98-107) mmol/L Carbon Dioxide 27.3 (21.0-32.0) mmol/L Anion Gap 7.7 (3-11) mmol/L BUN 6 L (7-18) mg/dL Creatinine 0.8 (0.70-1.30) mg/dL Est GFR (CKD-EPI 2020) 125.95 (mL/min/1.73m2) Glucose 109 H (74-106) mg/dL Calcium 9.0 (8.5-10.1) mg/dL Total Bilirubin 0.6 (0.2-1.0) mg/dL AST 14 L (15-37) U/L ALT 21 (16-63) U/L Alkaline Phosphatase 85 (46-116) U/L Total Protein 7.9 (6.4-8.2) g/dL Albumin 4.4 (3.4-5.0) g/dL 03/22/23 10:27 Blood Culture - Pending Blood 03/22/23 10:25 Blood Culture - Pending Blood Intake and Output - 24 Hour Total 03/22/23 09:20 thru 03/22/23 14:52 Intake Total 1570 Output Total 300 Balance 1270 Weight 64.864 kg Intake: IV 1350 Oral 220 Output: Urine 300 Other: Urine Color Yellow Urine Appearance Clear Urine Odor None Voiding Methods Toilet Falls Risk Assessment History of Falls No History 03/22/23 13:06 Contributing Factors No Factors 03/22/23 09:32 Ambulatory Aids Independent 03/22/23 13:06 Tubes/Lines None 03/22/23 13:06 Gait Evaluation No gait disturbance 03/22/23 13:06 Cognition No cognitive impairment 03/22/23 13:06 Fall Total Score 0 03/22/23 13:06 Level of Risk Standard/Low Risk 03/22/23 13:06 Problems (Last Reviewed 03/22/23 @ 12:36 by Dequan Rios MD) Perirectal abscess (Acute) Sepsis (Acute) v v v v v v v v v Sending and/or Receiving Nurses: Please use comment section below to note any information pertinent to the patient hand-off not included above. Information / Comments: Report received from: Ronnie Lester
[2023-03-22] MEDS: Melatonin 3 MG TAB PO (23:45)
[2023-03-23] MEDS: HYDROmorphone 2 MG/ML SYR 0.5 MG IVP ×4 (04:08→22:29)
[2023-03-23] MEDS: Normal Saline Flush 10 ML SYR IVP ×4 (04:09→16:41)
[2023-03-23] MEDS: Acetaminophen 500 MG TAB 1000 MG PO ×3 (05:32→21:25)
[2023-03-23] MEDS: CEFEPIME 2 GM in Normal Saline 100 ML IVPB ×3 (05:32→22:29)
[2023-03-23 07:20] LABS: Abs Immature Grans 0.07 10^3/uL (0.0-0.06); Absolute Lymphocyte Count 1.59 10^3/uL (1.2-3.4); Absolute Monocyte Count 1.23 10^3/uL (0.1-0.8); Basophils % 0.4; Eosinophils % 1.4; HCT 37.6 % (40.0-50.0); HGB 12.8 g/dL (13.5-17.5); Immature Grans % 0.4; Lymphocytes % 9.9; MCH 29.5 pg (27.0-33.0); MCV 87 fL (80-95); MPV 9.4 fL (8.0-11.0); Monocytes % 7.7; Neutrophils % 80.2; Platelet Count 224 10^3/uL (130-400); RBC 4.34 10^6/uL (4.36-5.78); RDW 11.9 % (11.8-14.1); RDW-SD 37.8 fL; WBC 16.03 10^3/uL (4.4-10.8)
[2023-03-23 07:25] LABS: Absolute Basophil Count 0.06 10^3/uL (0.0-0.2); Absolute Eosinophil Count 0.22 10^3/uL (0.0-0.7); Absolute Neutrophil Count 12.86 10^3/uL (1.2-6.7)
[2023-03-23 07:46] VITALS: BP 115/70; PULSE 71; RESP 18; TEMP 36.7; O2SAT 97
--- NOTE | 2023-03-23 08:10 | W.PM.PROGNOT ---
Date of Service Date of service: 03/23/23 Time of Service: 08:10 Assessment and Plan Assessment and plan (1) Perirectal abscess: Status: Acute Assessment and plan: Although his WBC is still high, his vital signs are reassuring, and the exam does seem to be a bit better than yesterday afternoon. Absent a good surgical target to drain, I think continuing the current antibiotics is the best option for right now. We will repeat the WBC tomorrow and reassess the wound again. Subjective Subjective Interval history since last seen: He feels a little better today with pain level going from 15 to 7. He denies subjective fevers and has had a little easier time ambulating around. He has an appetite and he is tolerating food without any issues. Exam GI Other: The buttock induration has improved a bit. There is less erythema. I don't feel any flutuance. Objective Last Vital Signs Temp 98.1 F 03/23/23 07:46 Pulse 71 03/23/23 07:46 Resp 18 03/23/23 07:46 BP 115/70 03/23/23 07:46 Pulse Ox 97 03/23/23 07:46 Laboratory Results - last 24 hr 03/22/23 03/23/23 10:25 06:25 WBC 15.23 H 16.03 H RBC 4.74 4.34 L Hgb 13.8 12.8 L Hct 41.0 37.6 L MCV 87 87 MCH 29.1 29.5 MCHC 33.7 34.0 RDW 11.7 L 11.9 Plt Count 232 224 MPV 9.0 9.4 Immature Gran % 0.3 0.4 Neutrophils % 85.8 80.2 Lymphocytes % 7.1 9.9 Monocytes % 5.4 7.7 Eosinophils % 0.9 1.4 Basophils % 0.5 0.4 Nucleated RBC % 0.0 0.0 Absolute Neutrophils 13.07 H 12.86 H Absolute Lymphocytes 1.08 L 1.59 Absolute Monocytes 0.82 H 1.23 H Absolute Eosinophils 0.14 0.22 Absolute Basophils 0.08 0.06 VBG Lactate 1.2 Sodium 137 Potassium 3.8 Chloride 102 Carbon Dioxide 27.3 Anion Gap 7.7 BUN 6 L Creatinine 0.8 Est GFR (CKD-EPI 2020) 125.95 Glucose 109 H Calcium 9.0 Total Bilirubin 0.6 AST 14 L ALT 21 Alkaline Phosphatase 85 Total Protein 7.9 Albumin 4.4 Time Spent with Patient Time Spent with Patient: 25-34 minutes Time was spent: preparing to see the patient(eg.review tests), indepentently interpreting results and counseling the patient
[2023-03-23] MEDS: Psyllium PKT 1 EACH PO (09:21)
--- NOTE | 2023-03-23 10:09 | INITIAL_ITS ---
Date of service: 03/23/23 Time of Service: 10:13 Care Management Initial Assmt Initial Assessment REASON FOR HOSPITALIZATION:: Perirectal Abscess PREVIOUS FUNCTIONAL STATUS/SOCIAL/FAMILY SUPPORTS:: Edi lives in [place], [place]. His parents, Lavern and Gurmeet, live in [place], [place]. 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 CURRENT FUNCTIONAL STATUS:: Edi was sitting up in his chair when CM met with him. He stated that he is doing well today. He reported that per MD, his WBC remains elevated. He is being treated with IV antibiotics at this time. Per report, the abscess is not a good candidate to drain at this time. He is being monitored closely. CM will continue to follow. ADVANCE DIRECTIVES:: Not on file at [facility]. Has patient been provided with info about the portal/API?: Yes Did the patient sign up for the portal?: Yes (active) CODE STATUS:: Full Code INSURANCE COVERAGE / FINANCIAL ISSUES:: [employer] ([facility] only). CURRENT HOME/COMMUNITY SERVICES/EQUIPMENT:: None. PRIMARY CARE PHYSICIAN:: Oracio Balbuena POTENTIAL DISCHARGE NEEDS:: Follow up appointments. PATIENT/FAMILY EDUCATION NEEDS:: Review discharge instructions and limitations, discussion of self care needs including ask me three. ANTICIPATED BARRIERS TO DISCHARGE:: None. TRANSPORTATION:: Via private vehicle by family. PLAN:: Anticipate Edi will return home once medically cleared. He will be driven home via private vehicle by family. He will follow up with his PCP and discharge plan of care. CM will continue to follow. [facility] All Active Problems Perirectal abscess (Acute) Sepsis (Acute) Preventative health care (Acute) Medical History Pilonidal cyst (07/31/16) Acne (11/05/13) Pectus excavatum Surgical History Pilonidal cyst with abscess (~12/2022) Status post tendon repair History of surgical procedure History of lymph node excision History of hydrocelectomy TENDON EXCISION 12/05/11 LEFT RING FINGER Removal of Pectus bar and stabilizers 06/24/15; [facility] [place] [address] 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/2013; PECTUS EXCAVATUM[place] [place] LYMPH NODE EXCISION/BX (~2009) [facility] [place]; CAT SCRATCH DISEASE BX-NEG Hydrocelectomy AGE 4 Family History Mother Depression Father Alcohol abuse Hyperlipidemia Depression Hypertension Obesity Brother ADHD (attention deficit hyperactivity disorder) Depression Grandfather Diabetes Essential hypertension Heart disease Hyperlipidemia Depression Memory loss Grandmother Essential hypertension Breast cancer Depression Obesity Grandmother Alcohol abuse Heart disease FAMILY HISTORY Personal history of malignant neoplasm PATERNAL GREAT GRANDFATHER-PROSTATE CANCER MATERNAL GREAT GRANDFATHER-LUNG CANCER Stroke MATERNAL GREAT GRANDMOTHER-MULTIPLE CVA/TIA Social History Smoking/Tobacco Use Status: Current-Occasional Tobacco Type: e-cigarettes Second Hand Exposure: Yes Smoking risk assessment performed?: Yes Alcohol Intake: current Alcohol Intake frequency: a few times a month Alcohol type: beer Drug use: Socially Substance use type: marijuana Caregiver/Support person: No Household members: significant other Housing: house Communication Needs: Corrective Lenses Do you need help understanding health information?: Often Pets and animals: Yes Pets and animals: dog(s) Sexually active: Yes Do you think of yourself as: straight/heterosexual Current gender identity: male What is your relationship status?: living with partner How often do you talk on the phone with friends or family?: three or more times per week How often do you get together with friends or relatives?: twice per week How often do you attend yazdanism or congregational services?: decline to answer Do you belong to any clubs or organized social groups?: no Panel score (0-1 are the most socially isolated patients): 2 What type of physical activity do you participate in: none Frequency: does not exercise Mary/Baptist: No preference Special mary needs: No Seatbelt use: never Helmet use: Yes Helmet use: sometimes Drive intox or ride w/intox seasonal driver: No Do you feel safe at home: Yes Do you feel safe in your relationship?: Yes
[2023-03-23] MEDS: Enoxaparin 40 MG/0.4 ML SYR SC (14:54)
[2023-03-23] MEDS: Polyethylene Glycol 3350 17 GM PACKET PO (15:09)
[2023-03-23 16:07] VITALS: BP 120/72; PULSE 65; RESP 18; TEMP 36.9; O2SAT 99
[2023-03-23] MEDS: Melatonin 3 MG TAB PO (21:25)
[2023-03-23] MEDS: LORazepam 2 MG/ML VIAL 0.5 MG IVP (21:28)
[2023-03-23 22:34] VITALS: BP 111/58; PULSE 92; RESP 18; TEMP 37.1; O2SAT 96
[2023-03-24] MEDS: Lactated Ringers 1,000 ML 30 ML IV (02:51)
[2023-03-24] MEDS: CEFEPIME 2 GM in Normal Saline 100 ML IVPB (05:50)
[2023-03-24] MEDS: HYDROmorphone 2 MG/ML SYR 0.5 MG IVP (05:51)
[2023-03-24] MEDS: Acetaminophen 500 MG TAB 1000 MG PO (05:51)
[2023-03-24 07:18] LABS: HCT 36.8 % (40.0-50.0); HGB 12.7 g/dL (13.5-17.5); MCH 29.5 pg (27.0-33.0); MCHC 34.5 % (32.0-36.0); MCV 86 fL (80-95); MPV 9.1 fL (8.0-11.0); Platelet Count 232 10^3/uL (130-400); RDW 11.7 % (11.8-14.1); RDW-SD 36.5 fL
[2023-03-24 08:07] VITALS: BP 115/74; PULSE 85; RESP 19; TEMP 36.3; O2SAT 96
[2023-03-24] MEDS: Polyethylene Glycol 3350 17 GM PACKET PO (08:21)
[2023-03-24] MEDS: Docusate Sodium 100 MG CAP PO (08:21)
--- NOTE | 2023-03-24 08:49 | W.PM.PROGNOT ---
Date of Service Date of service: 03/24/23 Time of Service: 08:49 Assessment and Plan Assessment and plan (1) Perirectal abscess: Status: Acute Assessment and plan: It certainly reassuring to see as white blood cell count improving, and his symptoms getting better. Hopefully, the antibiotics will be enough to resolve this on its own. I will switch him over to Augmentin today, and we will plan to follow-up in the office this week Subjective Subjective Interval history since last seen: Edi is feeling a little better today. He still having pain, but is certainly decreased from his admission, and seems to be a little better than yesterday as well. He had no fevers overnight. His white blood cell count started to improve. Exam GI Other: The buttock erythema continues to decrease. He threading machine tender in the area. I do not appreciate any fluctuance Objective Last Vital Signs Temp 97.3 F L 03/24/23 08:07 Pulse 85 03/24/23 08:07 Resp 19 03/24/23 08:07 BP 115/74 03/24/23 08:07 Pulse Ox 96 03/24/23 08:07 Laboratory Results - last 24 hr 03/24/23 06:55 WBC 13.40 H RBC 4.30 L Hgb 12.7 L Hct 36.8 L MCV 86 MCH 29.5 MCHC 34.5 RDW 11.7 L Plt Count 232 MPV 9.1 Time Spent with Patient Time Spent with Patient: 25-34 minutes Time was spent: preparing to see the patient(eg.review tests), counseling the patient and care coordination
--- NOTE | 2023-03-24 08:50 | DSE_ITS ---
Date of service: 03/24/23 Time of Service: 08:50 DS: Diagnosis Discharge Diagnosis (1) Perirectal abscess: Status: Acute Asessment and Plan: Discharge home with antibiotics and follow-up this week Discharge Plan Disposition Patient Disposition: Home Condition: Improving Discharge Details Reason For Visit: Perirectal Abscess Admit Date/Time: 03/22/23 12:02 Admit Provider: Dequan Rios Attending Provider: Dequan Rios Primary Care Provider: Oracio Morales Hospital Course Hospital Course: Edi is 27 years old, and he had been experiencing several days of increasing left-sided buttock pain. He came to the emergency department, and underwent an CT scan that demonstrated cellulitis and a small foci that could represent early abscess. He was started on broad-spectrum antibiotics without a suitable target for incision and drainage. Symptoms and leukocytosis improved, he was discharged with outpatient follow-up plan Home Meds and New Rx's Prescriptions: New tramadol 50 mg tablet 50 mg PO Q8H PRNQty: 21 0RF amoxicillin-pot clavulanate 875-125 mg tablet 1 tab PO BID Qty: 20 0RF Discharge Instructions Additional Instructions: Edi, we admitted you to the hospital with a diagnosis of buttock cellulitis, and possible abscess. Essentially, this is an infection of the soft tissues in the area of your buttock. We started you on some intravenous antibiotics, and your vital signs were all reassuring, with improvement of your lab testing. Like we talked about this morning, there is still a possibility that this may coalesce into a single point of fluid infection, that can be drained if needed. Hopefully, however, the antibiotics will be enough to take care of this. I have put in a prescription for an antibiotic that you will take by mouth. You will take 1 in the morning, and 1 in the afternoon every day for 10 days. I did like to see you in the office this week. Please call on Saturday morning to schedule an appointment. I also recommend that she take some type of a probiotic, or at least have some yogurt with live active cultures every day w hile you are using the antibiotic. I also recommend that you try some sitz bath's. You are welcome to pick 1 of these up at the pharmacy if you like, or just use her bathtub at home. Filled the tub with warm water. Mix in about half a cup of baking soda, or Epsom salts per gallon of water in the tub. This only needs to be estimated. I recommend doing this at least once in the morning, and once in the evening, but there is really no upper limit to how frequently it can be done if it is providing some relief. If you have any questions at all, please do not hesitate to call. You can reach me through the paging long chain dyeing machine operator at the hospital, or call the office directly during regular business hours. Referrals: Dequan Rios MD [ [facility] STAFF PHYSICIAN] - Activity:: Activity as Tolerated Equipment/Supplies:: No Equipment Needed Diet:: As Tolerated DS: Summary Time Spent with Patient providing and/or coordinating discharge services: Less than 30 minutes Status at Discharge Functional status at discharge: independent ambulation Overall status at discharge: patient is progressing back to baseline Mental Status: mental status grossly normal Speech and Movement: speech and movement normal Mood: congruent mood Affect: normal affect Exam GI Other: The buttock has some resolving erythema, and no fluctuance. 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 Psych Mental Status: mental status grossly normal Speech and Movement: speech and movement normal Mood: congruent mood Affect: normal affect DS: Data Vitals/I&O Vitals and I&O: Vital Signs Temperature 97.3 F L 03/24/23 08:07 Temperature Source Tympanic 03/24/23 08:07 Pulse 85 03/24/23 08:07 Pulse Rhythm Regular 03/23/23 23:40 Pulse 77 03/22/23 12:46 Respiratory Rate 19 03/24/23 08:07 Respiratory Effort Normal, Non-Labored 03/23/23 23:40 Respiratory Depth Normal 03/23/23 23:40 Respiratory Pattern Normal 03/23/23 23:40 Blood Pressure 115/74 03/24/23 08:07 Blood Pressure Mean 83 03/22/23 12:46 Blood Pressure Position Standing 03/22/23 09:27 Pulse Oximetry 96 03/24/23 08:07 Oxygen Delivery Method Room Air 03/24/23 08:07 Oxygen Flow Rate 0 03/24/23 08:07 Pain Level 7 03/24/23 08:07 Comment 7 for sitting, 5 when standing 03/24/23 08:07 Intake & Output 03/23/23 03/23/23 03/24/23 11:59 23:59 11:59 Intake Total 100 / 300 200 / 300 1100 / 1100 Balance 100 / 300 200 / 300 1100 / 1100 Intake: IV 100 / 300 200 / 300 1100 / 1100 Other: Urine Appearance Clear Clear Comment voids independently Voiding Methods Toilet Data Completed and Pending Labs on day of discharge: Labs from last 24 hours 03/24/23 06:55 WBC 13.40 H RBC 4.30 L Hgb 12.7 L Hct 36.8 L MCV 86 MCH 29.5 MCHC 34.5 RDW 11.7 L Plt Count 232 MPV 9.1 Preliminary micro results at discharge 03/22/23 10:27 Blood Culture - Preliminary Blood NO GROWTH 24 HOURS 03/22/23 10:25 Blood Culture - Preliminary Blood NO GROWTH 24 HOURS PFSH All Active Problems Perirectal abscess (Acute) Sepsis (Acute) Preventative health care (Acute) Medical History Pilonidal cyst (07/31/16) Acne (11/05/13) Pectus excavatum Surgical History Pilonidal cyst with abscess (~12/2022) Status post tendon repair History of surgical procedure History of lymph node excision History of hydrocelectomy TENDON EXCISION 12/05/11 LEFT RING FINGER Removal of Pectus bar and stabilizers 06/24/15; [facility] [place] DR. 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/2013; PECTUS EXCAVATUM-[facility] [place] LYMPH NODE EXCISION/BX (~2009) [facility] [place]; CAT SCRATCH DISEASE BX-NEG Hydrocelectomy AGE 4 Family History Mother Depression Father Alcohol abuse Hyperlipidemia Depression Hypertension Obesity Brother ADHD (attention deficit hyperactivity disorder) Depression Grandfather Diabetes Essential hypertension Heart disease Hyperlipidemia Depression Memory loss Grandmother Essential hypertension Breast cancer Depression Obesity Grandmother Alcohol abuse Heart disease FAMILY HISTORY Personal history of malignant neoplasm PATERNAL GREAT GRANDFATHER-PROSTATE CANCER MATERNAL GREAT GRANDFATHER-LUNG CANCER Stroke MATERNAL GREAT GRANDMOTHER-MULTIPLE CVA/TIA Social History Smoking/Tobacco Use Status: Current-Occasional Tobacco Type: e-cigarettes Second Hand Exposure: Yes Smoking risk assessment performed?: Yes Alcohol Intake: current Alcohol Intake frequency: a few times a month Alcohol type: beer Drug use: Socially Substance use type: marijuana Caregiver/Support person: No Household members: significant other Housing: house Communication Needs: Corrective Lenses Do you need help understanding health information?: Often Pets and animals: Yes Pets and animals: dog(s) Sexually active: Yes Do you think of yourself as: straight/heterosexual Current gender identity: male What is your relationship status?: living with partner How often do you talk on the phone with friends or family?: three or more times per week How often do you get together with friends or relatives?: twice per week How often do you attend methodist or islam services?: decline to answer Do you belong to any clubs or organized social groups?: no Panel score (0-1 are the most socially isolated patients): 2 What type of physical activity do you participate in: none Frequency: does not exercise Mary/Baptism: No preference Special mary needs: No Seatbelt use: never Helmet use: Yes Helmet use: sometimes Drive intox or ride w/intox full service vending driver: No Do you feel safe at home: Yes Do you feel safe in your relationship?: Yes Time Spent with Patient Time Spent with Patient: <45 minutes Time was spent: preparing to see the patient(eg.review tests), ordering medications,tests, procedures, indepentently interpreting results and counseling the patient
--- NOTE | 2023-03-24 14:59 | PDOC.CMDIS ---
Date of service: 03/24/23 Time of Service: 15:00 LACE Index Scoring Tool Questions: Length of Stay (in days): 2 Was the patient admitted via the E.D.?: Yes E.D. Visits: 0 Answers: Total Score: 5 Risk of Readmission: Low Risk Care Management Discharge Plan Reason for Hospitalization: Perirectal Abscess Discharge Plan: Edi returned home today with no new services. He was driven home via private vehicle by family. He will follow up with his PCP and discharge plan of care. Patient/Family Education Needs: Review discharge instructions and limitations, discussion of self care needs including ask me three.
== END 2023-03-24 10:38 | disposition home or self-care (01) | DRG 872 ==
LOC: ER 12:11 → MS 13:04
PROVIDERS: Admitting Provider Surgery; Emergency Provider Student in an Organized Health Care Education/Training Program; PCP Nurse Practitioner Family; Visit Provider Surgery
DX: A41.9 Sepsis, unspecified organism (principal); K61.1 Rectal abscess; D72.829 Elevated white blood cell count, unspecified; F17.290 Nicotine dependence, other tobacco product, uncomplicated; F12.90 Cannabis use, unspecified, uncomplicated; Q67.6 Pectus excavatum
CPT/HCPCS: 36415; 80053; 85027; 87040; 96365; 96366; 96367; 96375; 99285; J1650; 74177; 83605; 85025; J0131; J1170; J2060